=== PATIENT | female | born 1950 | race Caucasian/White ===

== ENCOUNTER 2021-01-09 19:59 | Observation (INO) ==
[2021-01-09 21:07] LABS: ABS Eosinophils 0.1 10^3/ul (0-0.6); ABS Monocytes 0.5 10^3/ul (0-0.8); ABS Neutrophils 4.3 10^3/ul (1.5-7.7); Eosinophil % 1.6 %; Hematocrit 41 % (35-47); Lymphocyte % 28.5 %; Mean Corpuscular HGB Conc 34 g/dL (31-36); Mean Corpuscular Hemoglobin 32 pg (27-31); Mean Corpuscular Volume 92 fL (80-97); Mean Platelet Volume 8.3 fL (7.4-10.4); Platelet Count 222 10^3/uL (150-450); Red Blood Count 4.46 10^6 /uL (3.70-4.87); Red Cell Distribution Width 13 % (10-15); White Blood Count 6.9 10^3/uL (3.5-10.8)
[2021-01-09 21:27] LABS: Albumin 4.6 g/dL (3.2-5.2); Albumin/Globulin Ratio 1.5 (1-3); Calcium 10.1 mg/dL (8.6-10.3); EGFR African American 109.4 (>60); EGFR Non-African American 90.4 (>60); Potassium 3.4 mmol/L (3.5-5.0); Total Bilirubin 0.4 mg/dL (0.2-1.0); Total Protein 7.6 g/dL (6.4-8.9)
[2021-01-09 21:29] LABS: Troponin I 0.01 ng/mL (<0.03)
[2021-01-10 00:06] LABS: HDL Cholesterol 71.2 mg/dL
[2021-01-10 00:19] LABS: Magnesium 1.7 mg/dL (1.9-2.7)
[2021-01-10 00:20] LABS: INR 0.98 (0.82-1.09)
[2021-01-10] MEDS ORDERED: Magnesium Sulfate 2 gm BAG 2 GM/50 ML BAG IVPB ONE (00:22)
[2021-01-10] MEDS ORDERED: Enoxaparin 40 MG/0.4 ML SYR SUBCUT SCH (01:00)
[2021-01-10 01:17] LABS: TSH Ultra Thyroid Stim Horm 3.4 mcIU/mL (0.34-5.60)
[2021-01-10] MEDS: KCL 20 MEQ/100 ML IVPREMIX 20 MEQ/100 ML BAG IV SCH ×2 (03:04→06:24)
[2021-01-10 03:21] LABS: Urine Appearance Cloudy; Urine Bilirubin Negative (Negative); Urine Blood Negative (Negative); Urine Color Yellow; Urine Glucose Negative (Negative); Urine Ketones Negative (Negative); Urine Nitrite Negative (Negative); Urine Protein Negative (Negative); Urine Specific Gravity 1.026 (1.002-1.030); Urine Urobilinogen Negative (Negative)
[2021-01-10 03:32] LABS: Urine Bacteria Absent (Absent); Urine Red Blood Cell Absent (Absent); Urine Squamous Epithelial Cell Present (Absent); Urine White Blood Cell 1+(6-10/hpf) (Absent)
[2021-01-10] MEDS ORDERED: Potassium Chlor 20 meq TAB.ER PO ONE (05:02)
[2021-01-10 05:36] LABS: Hematocrit 38 % (35-47); Hemoglobin 12.8 g/dL (12.0-16.0); Mean Corpuscular HGB Conc 33 g/dL (31-36); Mean Corpuscular Hemoglobin 31 pg (27-31); Mean Corpuscular Volume 93 fL (80-97); Mean Platelet Volume 9.2 fL (7.4-10.4); Platelet Count 219 10^3/uL (150-450); Red Blood Count 4.13 10^6 /uL (3.70-4.87); Red Cell Distribution Width 13 % (10-15); White Blood Count 5.6 10^3/uL (3.5-10.8)
[2021-01-10 05:42] LABS: BUN/Creatinine Ratio 21.1 (8-20); Calcium 9.4 mg/dL (8.6-10.3); EGFR African American 127.2 (>60); EGFR Non-African American 105.2 (>60); Potassium 3.5 mmol/L (3.5-5.0)
[2021-01-10 06:11] LABS: ABS Eosinophils 0.2 10^3/ul (0-0.6); ABS Monocytes 0.4 10^3/ul (0-0.8); Eosinophil % 3.5 %; Lymphocyte % 35.2 %; Nucleated Red Blood Cells % 0.3
[2021-01-10 10:35] LABS: Magnesium 2.3 mg/dL (1.9-2.7)
[2021-01-10 13:51] VITALS: BP 126/82
== END 2021-01-10 14:40 | disposition home or self-care (01) ==
LOC: ED 19:59 → MEDTELE 19:59
PROVIDERS: ADMIT Internal Medicine; ATTEND Student in an Organized Health Care Education/Training Program

== ENCOUNTER 2024-04-01 06:21 | Inpatient (IN) ==
[2024-04-01] MEDS ORDERED: ROPIVACAINE 5 MG/ML 30 ML BTL (0.5%) ONE (07:17)
[2024-04-01] MEDS ORDERED: ceFAZolin 2 GM PREMIX 2 GM/50 ML BAG ONE (07:18)
[2024-04-01] MEDS ORDERED: Tranexamic Acid 1 GM/100ML BAG 2,000 MG/200 ML BAG IV ONE (07:18)
[2024-04-01] MEDS ORDERED: Midazolam 2 mg/2 ml VIAL 1 mg/ml 2 ml VIAL (2 mg) ONE (07:25)
[2024-04-01] MEDS ORDERED: fentaNYL 100 mcg/2 ml 50 MCG/ML VIAL ONE ×2 (07:25→12:00)
[2024-04-01 07:32] LABS: Rapid COVID-19 Molecular Undetected (Undetected)
[2024-04-01] MEDS ORDERED: Rocuronium 50 mg VIAL 10 mg/ml 5 ml VIAL (50 mg) ONE (07:38)
[2024-04-01] MEDS ORDERED: Famotidine IV 10 MG/ML 2 ml VIAL (20 mg) ONE (08:55)
[2024-04-01] MEDS ORDERED: Magnesium Hydroxide LIQ 30 ML UDC PO PRN ×2 (09:11→13:40)
[2024-04-01] MEDS ORDERED: Ondansetron ODT 4 mg TAB 4 MG TAB PO PRN ×2 (09:11→13:40)
[2024-04-01] MEDS ORDERED: Ondansetron 4 mg VIAL 2 MG/ML 2 ml VIAL IV PRN ×4 (09:11→13:40)
[2024-04-01] MEDS ORDERED: Morphine 2 MG/ML SYRINGE IV PRN (09:11)
[2024-04-01] MEDS ORDERED: Calcium Carb (TUMS) 500 mg CHEW TAB PO PRN ×2 (09:11→13:40)
[2024-04-01] MEDS ORDERED: Lactulose 30 ml UDC PO PRN ×2 (09:11→13:40)
[2024-04-01] MEDS ORDERED: Phenylephrine IV 10 MG/ML 1 ml VIAL ONE (10:27)
[2024-04-01] MEDS ORDERED: Glycopyrrolate IV 0.2 MG/ML 1 ML VIAL ONE ×2 (10:27→10:28)
[2024-04-01] MEDS ORDERED: Metoclopramide 5 MG/ML VIAL (10 mg) IV PRN ×2 (11:59→13:40)
[2024-04-01] MEDS ORDERED: Naloxone 0.4 mg VIAL 0.4 mg/ml 1 ml VIAL IV PRN ×2 (11:59→13:40)
[2024-04-01] MEDS ORDERED: NS 0.45% 1000 ml BAG 1,000 ML IV SCH ×2 (12:00→14:00)
[2024-04-01] MEDS: fentaNYL 100 mcg/2 ml 50 MCG/ML VIAL IV PRN (12:04)
[2024-04-01] MEDS ORDERED: Lactated Ringers 1000 ml BAG 1,000 ML IV SCH (14:00)
[2024-04-01] MEDS: Lactated Ringers 1000 ml BAG 1,000 ML IV SCH ×3 (14:05→14:07)
[2024-04-01] MEDS: Acetaminophen IV 1 GM/100ML 1,000 MG/100 ML BAG IV ONE ×2 (14:06→14:07)
[2024-04-01] MEDS: ceFAZolin 2 GM in NS PREMIX 2 GM/100 ML BAG IVPB SCH ×2 (14:06→18:20)
[2024-04-01] MEDS: Buffered Lidocaine 1% SYRIN 1 ml INTRADERM ONE ×2 (14:08)
[2024-04-01] MEDS: Scopolamine 1 mg/72hr PATCH TRANSDERM ONE ×2 (14:09)
[2024-04-01] MEDS: Morphine 2 MG/ML SYRINGE IV PRN (14:14)
[2024-04-01] MEDS ORDERED: Magnesium Hydroxide LIQ 30 ML UDC PO SCH (21:00)
[2024-04-01] MEDS: Magnesium Hydroxide LIQ 30 ML UDC PO SCH (21:24)
[2024-04-02 06:47] LABS: Hematocrit 33.6 % (35-45); Hemoglobin 11.7 g/dL (11.5-14.3); Mean Platelet Volume 7.8 fL (7.5-11.2); Platelet Count 224 10^3/uL (150-450)
[2024-04-02 07:03] LABS: Creatinine, Serum 0.61 mg/dL (0.51-0.95); Potassium 3.4 mmol/L (3.5-5.0); eGFR CKD-EPI 94.3 (>60)
[2024-04-02] MEDS: Vitamin THERAPEUTIC TAB PO SCH (08:11)
[2024-04-02] MEDS: Pravastatin 20 mg TAB (NF) PO SCH (08:11)
[2024-04-02] MEDS ORDERED: Pravastatin 40 mg TAB (NF) PO SCH (09:00)
[2024-04-02] MEDS ORDERED: Vitamin THERAPEUTIC TAB PO SCH (09:00)
[2024-04-02 10:25] VITALS: BP 115/59
== END 2024-04-02 14:15 | disposition home or self-care (01) | DRG 470 ==
LOC: AA → INTOOBSV 06:21 → SSU 09:11 → EDSTATUS 09:30
PROVIDERS: ADMIT Orthopaedic Surgery Adult Reconstructive Orthopaedic Surgery; ATTEND Orthopaedic Surgery Adult Reconstructive Orthopaedic Surgery